=== PATIENT | male | born 1970 | race Caucasian/White ===

== ENCOUNTER 2022-05-05 11:06 | Inpatient (IN) | payer BC, OTHER ==
[~2022-05-05] VITALS: Ht 180.3 cm; Wt 68.0 kg
[~2022-05-05 11:06] MED LIST: ELIQUIS 5 MG TAB5 MG PO; LOPRESSOR 25 MG25 MG PO; NICOTINE PATCH1 EAC2 TD; PROTONIX 40 MG40 M1 PO; PROVENTIL HFA6.7 GM INH; SYMBICORT 160-1 INHA INH; TAB-A-VITE TA400 MC1 PO; THIAMINE HCL100 MG PO; VENTOLIN/PROVE0.5 ML INH
[2022-05-05 12:16] LABS: HEMOGLOBIN 14.8 gm/dl (14.0-17.5); RED BLOOD COUNT 3.91 M/UL (4.20-5.50); WHITE BLOOD COUNT 7.3 K/UL (4.5-11.0)
[2022-05-05 12:45] LABS: BUN/CREATININE RATIO 13 (0-10)
[2022-05-05] MEDS ORDERED: MELATONIN10 MG PO (17:38)
[2022-05-06 06:26] LABS: HEMOGLOBIN 15.3 gm/dl (14.0-17.5); RED BLOOD COUNT 4.04 M/UL (4.20-5.50)
[2022-05-06 06:55] LABS: BUN/CREATININE RATIO 16 (0-10)
[2022-05-07 06:52] LABS: BUN/CREATININE RATIO 35 (0-10)
[2022-05-07 06:57] LABS: HEMOGLOBIN 15.4 gm/dl (14.0-17.5); RED BLOOD COUNT 4.11 M/UL (4.20-5.50); WHITE BLOOD COUNT 6.1 K/UL (4.5-11.0)
[2022-05-08 06:58] LABS: WHITE BLOOD COUNT 6.2 K/UL (4.5-11.0)
[2022-05-08 07:18] LABS: BUN/CREATININE RATIO 38 (0-10)
[2022-05-08 10:22] LABS: BODY FLUID SOURCE PLEURAL
[2022-05-08 10:23] LABS: MONONUCLEAR CELLS 49.7 (75-100); POLYMORPHONUCLEAR % 50.3 (0-25); RBC (AUTOMATED) 37900 (0-100000); WBC (AUTOMATED) 4951 (0-500)
[2022-05-08 11:10] LABS: LDH, BODY FLUID 283 U/L; TOTAL PROTEIN, BODY FLUID 5.3 gm/dL
[2022-05-09 04:06] LABS: HEMOGLOBIN 14.4 gm/dl (14.0-17.5); RED BLOOD COUNT 3.84 M/UL (4.20-5.50); WHITE BLOOD COUNT 5.6 K/UL (4.5-11.0)
[2022-05-09 05:02] LABS: BUN/CREATININE RATIO 35 (0-10)
[2022-05-09] MEDS ORDERED: THERAGRAN M TAB1 EA PO (11:40)
[2022-05-09] MEDS ORDERED: LEVOFLOXACIN500 MG PO (11:40)
[2022-05-09 15:11] LABS: ORGANISM ID Not indicated. (.); SPECIMEN SOURCE Urine (.); STREPTOCOCCUS PNEUMONIAE AG Negative (Negative)
== END 2022-05-09 12:09 | disposition home or self-care (01) | DRG 194 ==
LOC: ER1 11:06 → MED SURG 4 16:46 → CDU 16:46 → MED SURG 4 20:30
PROVIDERS: Internal Medicine Pulmonary Disease; Physician Assistant Medical; ADMIT Internal Medicine
PROC: 0W9B3ZZ Drainage of Left Pleural Cavity, Percutaneous Approach (ICD-10-PCS; principal; 2022-05-08)
PROC: BB4BZZZ Ultrasonography of Pleura (ICD-10-PCS; 2022-05-08)
DX: J18.9 Pneumonia, unspecified organism (principal); J91.8 Pleural effusion in other conditions classified elsewhere; K74.60 Unspecified cirrhosis of liver; Z20.822 Contact with and (suspected) exposure to COVID-19; F10.10 Alcohol abuse, uncomplicated; F17.210 Nicotine dependence, cigarettes, uncomplicated; I10 Essential (primary) hypertension; I48.91 Unspecified atrial fibrillation; Z79.01 Long term (current) use of anticoagulants; Z80.8 Family history of malignant neoplasm of other organs or systems
CPT/HCPCS: 36415; 71045; 71046; 71250; 80048; 80053; 81001; 82550; 82553; 82945; 83605; 83615; 83690; 83735; 84100; 84157; 84439; 84443; 84484; 85025; 85610; 85652; 86038; 86140; 86430; 86431; 87015; 87040; 87070; 87081; 87116; 87205; 87206; 87278; 87899; 89051; 93005; 94640; 94664; 94760; 96374; 96375; 99285; C1729; J0456; J0696; J1940; J2270; J7030; Q9967; U0002

== ENCOUNTER → 2022-05-16 | Outpatient (CLI) | payer OTHER ==
[~2022-05-16] MED LIST changes: +LEVOFLOXACIN500 MG PO; +MELATONIN10 MG PO; +THERAGRAN M TAB1 EA PO
== END ==
LOC: EXRD 11:25
DX: J90 Pleural effusion, not elsewhere classified (principal)
CPT/HCPCS: 71046